=== PATIENT | male | born 1990 | race Caucasian/White ===

== ENCOUNTER 2019-09-22 14:36 | Emergency (ER) | payer SELFPAY ==
[~2019-09-22] VITALS: Ht 170.2 cm; Wt 63.5 kg
[~2019-09-22 14:36] MED LIST: HYDACE5 PO; IBUP400 PO; IBUP600 PO; KETO10 PO; NAPR500 PO; NAPR550 PO; Norco 5-325 Ta1 EACH PO; TRAM50 PO; Ultram50 MG PO
[2019-09-22] MEDS ORDERED: Monodox100 MG PO (15:16)
[2019-09-22] MEDS ORDERED: IBU800 MG PO (15:16)
== END 2019-09-22 15:30 | disposition home or self-care (01) ==
LOC: ER 14:36
DX: L02.411 Cutaneous abscess of right axilla (principal); F17.210 Nicotine dependence, cigarettes, uncomplicated
CPT/HCPCS: 10060; 99282-25

== ENCOUNTER 2019-10-01 00:50 | Emergency (ER) | payer SELFPAY ==
[~2019-10-01] VITALS: Ht 170.2 cm; Wt 63.5 kg
[~2019-10-01 00:50] MED LIST changes: +IBU800 MG PO; +Monodox100 MG PO
[2019-10-01] MEDS ORDERED: Vibramycin100 MG PO (03:33)
== END 2019-10-01 03:54 | disposition home or self-care (01) ==
LOC: ER 00:50
DX: L02.411 Cutaneous abscess of right axilla (principal); F17.210 Nicotine dependence, cigarettes, uncomplicated
CPT/HCPCS: 10061; 99282-25